=== PATIENT | female | born 1945 | race Caucasian/White ===

== ENCOUNTER 2022-02-21 10:17 | Day surgery (SDC) | payer MEDICARE ==
[~2022-02-21] VITALS: Ht 157.5 cm; Wt 71.7 kg
[~2022-02-21 10:17] MED LIST: Acidophilus La100 GM; Aspir 8181 MG; CHOL10002 PO; DOCU100; DOCU100 PO; ENOX40I SC; EQ GLUCOSAMINE1 EAC1; GLUC500 PO; MAGNESIUM PO; METF500 PO; OMEP20ER; OXYACE7.5T PO; POTBIC25 PO; PROBIOTIC1 EAC1 PO; Percocet 5-3251 EACH PO
== END 2022-02-21 12:33 | disposition home or self-care (01) ==
LOC: ORSCSDS 10:17
PROVIDERS: Student in an Organized Health Care Education/Training Program
PROC: 0DBK8ZX Excision of Ascending Colon, Via Natural or Artificial Opening Endoscopic, Diagnostic (ICD-10-PCS; principal; 2022-02-21 11:30)
PROC: 0DBC8ZX Excision of Ileocecal Valve, Via Natural or Artificial Opening Endoscopic, Diagnostic (ICD-10-PCS; principal; 2022-02-21 11:30)
DX: Z12.11 Encounter for screening for malignant neoplasm of colon (principal); Z80.0 Family history of malignant neoplasm of digestive organs; D12.2 Benign neoplasm of ascending colon; D12.0 Benign neoplasm of cecum; K57.30 Diverticulosis of large intestine without perforation or abscess without bleeding; K64.8 Other hemorrhoids; I10 Essential (primary) hypertension; E11.9 Type 2 diabetes mellitus without complications; Z79.899 Other long term (current) drug therapy
CPT/HCPCS: 88305; J2704

== ENCOUNTER → 2025-07-10 | Outpatient (CLI) | payer OTHER | LOC: LAB SHORT 11:40 → LAB 11:40 | DX: L08.0 Pyoderma (principal) | CPT/HCPCS: 87070; 87106; 87205 ==